=== PATIENT | male | born 1995 | race African-American/Black ===

== ENCOUNTER 2018-03-26 13:01 | Emergency (ER) | payer MEDICAID ==
[~2018-03-26] VITALS: Ht 167.6 cm; Wt 90.7 kg
[2018-03-26 13:12] VITALS: BP 144/55
[2018-03-26] MEDS ORDERED: ONDANSETRON ODT 4 MG TAB.RAPDIS. ONE (13:25)
[2018-03-26] MEDS ORDERED: ONDANSETRON ODT 4 MG TAB.RAPDIS. PO ONE (13:30)
--- NOTE | 2018-03-26 13:38 | PHYS DOC ---
Past Medical History Past Medical History: No Pertinent History Past Surgical History: No Surgical History Alcohol Use: Occasionally Drug Use: None Adult General Chief Complaint Chief Complaint: FLU SYMPTOM [facility] HPI Patient is a 22 year old -Burm[place] male presents to the emergency Department today with complaints of severe nausea, vomiting, sweats, and chills since last night. Patient has also reported a bit of a dry cough. He denies any wheezing, shortness of breath, sore throat, ear pain, diarrhea, abdominal pain, back pain, or rash. He states that he has vomited at least 5 times since the onset of his symptoms. Patient reports a history of seasonal allergic rhinitis and chronic back pain. States he takes Flexeril and tramadol for his back pain, he is not currently taking anything for his allergies. He smokes less than half pack of cigarettes a day. Review of Systems Review of Systems Constitutional: see History of present illness Eyes: Denies change in visual acuity, redness, or eye pain [] HENT: Denies nasal congestion or sore throat, see history of present illness [] Respiratory: Nonproductive cough, denies any shortness of breath or wheezing Cardiovascular: No additional information not addressed in HPI [] GI: Denies abdominal pain, or diarrhea. Reports severe nausea with vomiting Musculoskeletal: Denies back pain or joint pain [] Integument: Denies rash or skin lesions [] Neurologic: Denies headache, focal weakness or sensory changes [] Complete systems were reviewed and found to be within normal limits, except as documented in this note. Current Medications Current Medications Current Medications Medications (Trade) Dose Ordered Sig/[facility] Start Time Stop Time Status Last Admin Dose Admin Ondansetron HCl (Zofran Odt) 4 mg 1X ONCE 03/26/18 13:30 03/26/18 13:32 DC 03/26/18 13:30 4 MG Allergies Allergies Allergies Coded Allergies Type Severity Reaction Last Updated Verified No Known Drug Allergies 03/26/18 No Physical Exam Physical Exam Constitutional: Well developed, well nourished, no acute distress, non-toxic appearance. [] HENT: Normocephalic, atraumatic, bilateral external ears normal, bilateral TMs normal, posterior pharynx normal, 1+ tonsils bilaterally, oropharynx moist, no oral exudates, lips moist, nose normal. [] Eyes: conjunctiva normal, no discharge. [] Neck: Normal range of motion, no tenderness, supple, no stridor. [] Cardiovascular:Heart rate regular rhythm, no murmur [] Lungs & Thorax: Bilateral breath sounds clear to auscultation [] Abdomen: Bowel sounds normal, soft, no tenderness, no masses, no pulsatile masses. [] Skin: Warm, dry, no erythema, no rash. [] Extremities: No cyanosis, no clubbing, ROM intact, no edema. [] Neurologic: Alert and oriented X 3, normal motor function, normal sensory function, no focal deficits noted. [] Psychologic: Affect normal, judgement normal, mood normal. [] Current Patient Data Vital Signs Vital Signs Date Time Temp Pulse Resp B/P (MAP) Pulse Ox O2 Delivery O2 Flow Rate FiO2 03/26/18 13:12 97.4 79 16 144/55 (84) 99 Room Air 97.4 Lab Values Laboratory Tests Test 03/26/18 13:33 Influenza Type A Antigen Negative (NEGATIVE) Influenza Type B Antigen Negative (NEGATIVE) EKG EKG [] Radiology/Procedures Radiology/Procedures [] Course & Med Decision Making Course & Med Decision Making Pertinent Labs and Imaging studies reviewed. (See chart for details) Dx: Nausea and vomiting physical exam not concerning for dehydration. Influenza testing negative. PT reports feeling better after zofran ODT. Rx for zofran, clear fluids, and rest. Follow up with PCP if sx persist, return to ER if they worsen. Staff Physician Addendum: I was working in the ER during the course of this patient's visit. I was available for consultation as needed, but I was not directly involved in the care of this patient. [] Dragon Disclaimer Dragon Disclaimer This electronic medical record was generated, in whole or in part, using a voice recognition dictation system. Departure Departure Impression: Primary Impression: Nausea & vomiting Disposition: 01 HOME, SELF-CARE Condition: STABLE Referrals: UNKNOWN PCP NAME (PCP) Patient Instructions: Viral Gastroenteritis, [id number] Additional Instructions: Fill the prescription and use as directed. Clear fluids until you have not vomited for 24 hours. Tylenol or ibuprofen as needed for pain/fever. Follow up with your PCP if symptoms persist, return to the ER if symptoms worsen. Scripts Ondansetron (ONDANSETRON ODT) 4 Mg Tab.rapdis 1 TAB PO PRN Q6-8HRS, #16 TAB 0 Refills Prov: MARYJANE POLANCO ACCOUNTING MANAGER 03/26/18 Problem Qualifiers Primary Impression: Nausea & vomiting Vomiting type: unspecified Vomiting Intractability: non-intractable Qualified Codes: R11.2 - Nausea with vomiting, unspecified MARYJANE POLANCO ACCOUNTING MANAGER Mar 26, 2018 13:38 PAKO DELGADO MD Mar 26, 2018 16:44
[2018-03-26 14:10] LABS: INFLUENZA A PATIENT NEGATIVE (NEGATIVE); INFLUENZA B PATIENT NEGATIVE (NEGATIVE)
[2018-03-26] MEDS ORDERED: ONDA4TAB12 PO (14:22)
== END 2018-03-26 14:37 | disposition home or self-care (01) ==
LOC: ER 13:01
DX: R11.2 Nausea with vomiting, unspecified (principal); R61 Generalized hyperhidrosis; R05 Cough; G89.29 Other chronic pain; M54.89 Other dorsalgia
CPT/HCPCS: 87804; 99283; Q0162

== ENCOUNTER 2021-08-18 05:42 | Emergency (ER) | payer MEDICAID, OTHER ==
[~2021-08-18] VITALS: Ht 170.2 cm; Wt 98.0 kg
[~2021-08-18 05:42] MED LIST: ONDA4TAB12 PO
[2021-08-18 06:01] VITALS: BP 133/63
--- NOTE | 2021-08-18 06:27 | PHYS DOC ---
Past Medical History Past Medical History: No Pertinent History Past Surgical History: No Surgical History Smoking Status: Current Every Day Smoker Alcohol Use: Occasionally Drug Use: None General Adult EDM: Chief Complaint: MEDICATION REFILL HPI: HPI: Patient is a 26 year old M who presents with depression and anxiety, patient states he has no suicidal or homicidal ideations. Patient states he has been depressed for some time now. He states that he has been off his medications for 10 months now. Patient states that he feels depressed about relationship is sues. He states that his ex- and his current are both sources of stress for him. Patient states that he wants to live for his children but he finds life difficult from time to time. He recently visited emergency department 2 weeks ago who refilled his lorazepam with 4 tablets. He used to be on Paxil as well. He presents for a medication refill looking for something to help his depression and anxiety. Review of Systems: Review of Systems: Constitutional: Denies fever or chills. [] Eyes: Denies change in visual acuity. [] HENT: Denies nasal congestion or sore throat. [] Respiratory: Denies cough or shortness of breath. [] Cardiovascular: Denies chest pain or edema. [] GI: Denies abdominal pain, nausea, vomiting, bloody stools or diarrhea. [] : Denies dysuria. [] Musculoskeletal: Denies back pain or joint pain. [] Integument: Denies rash. [] Neurologic: Denies headache, focal weakness or sensory changes. [] Endocrine: Denies polyuria or polydipsia. [] Lymphatic: Denies swollen glands. [] Psychiatric: Positive depression or anxiety. [] Heart Score: C/O Chest Pain: No Risk Factors: Risk Factors: DM, Current or recent (<one month) smoker, HTN, HLP, family history of CAD, obesity. Risk Scores: Score 0 - 3: 2.5% MACE over next 6 weeks - Discharge Home Score 4 - 6: 20.3% MACE over next 6 weeks - Admit for Clinical Observation Score 7 - 10: 72.7% MACE over next 6 weeks - Early Invasive Strategies Allergies: Allergies: Allergies Coded Allergies Type Severity Reaction Last Updated Verified No Known Drug Allergies 03/26/18 No Physical Exam: PE: Constitutional: Well developed, well nourished, no acute distress, non-toxic appearance. [] HENT: Normocephalic, atraumatic, bilateral external ears normal, oropharynx moist, no oral exudates, nose normal. [] Eyes: PERRLA, EOMI, conjunctiva normal, no discharge. [] Neck: Normal range of motion, no tenderness, supple, no stridor. [] Cardiovascular:Heart rate regular rhythm, no murmur [] Lungs & Thorax: Bilateral breath sounds clear to auscultation [] Abdomen: Bowel sounds normal, soft, no tenderness, no masses, no pulsatile masses. [] Skin: Warm, dry, no erythema, no rash. [] Back: No tenderness, no CVA tenderness. [] Extremities: No tenderness, no cyanosis, no clubbing, ROM intact, no edema. [] Neurologic: Alert and oriented X 3, normal motor function, normal sensory function, no focal deficits noted. [] Psychologic: Affect depressed, judgement normal, mood depressed [] EKG: EKG: [] Radiology/Procedures: Radiology/Procedures: [] Impression: Depression and anxiety Course & Med Decision Making: Course & Med Decision Making Pertinent Labs and Imaging studies reviewed. (See chart for details) 26-year-old male with past medical history of depression and anxiety, seen and examined by myself. Patient is currently hemodynamically stable. Patient states that he does not have suicidal or homicidal ideation. I offered to refill his Paxil. I think this may be a better benefit than refilling his lorazepam. He used to be on Paxil, he is currently going through a depressive episode. He meets the qualifications for major depressive disorder. He is not having sleep disturbances at this moment. I have refilled his Paxil. Patient agreed with this plan of care. He has a follow-up appointment with the [facility] in 1-1/2 weeks. He is to follow-up with them. He will also follow-up with his primary care physician to adjust medications. All questions answered, patient discharged in stable condition. Patient given return precautions to the ER. Kita Disclaimer: Kita Disclaimer: This electronic medical record was generated, in whole or in part, using a voice recognition dictation system. Departure Departure Impression: Primary Impression: Depression Disposition: 01 HOME / SELF CARE / HOMELESS Condition: GOOD Patient Instructions: Depression, Adult, [id number] Additional Instructions: Follow up with the guidance center on the of this month. You may start paxil now, you should follow up with your primary care physician in 4-6 weeks as well to see how you are doing. TARI MISTRY MD August 18, 2021 06:27
[2021-08-18] MEDS ORDERED: PARO20TA99 PO (06:28)
== END 2021-08-18 07:04 | disposition home or self-care (01) ==
LOC: ER 05:42
DX: F32.9 Major depressive disorder, single episode, unspecified (principal); F17.200 Nicotine dependence, unspecified, uncomplicated
CPT/HCPCS: 99281